=== PATIENT | male | born 1995 | race Caucasian/White ===

== ENCOUNTER 2024-06-13 01:04 | Emergency (ER) | payer MEDICAID, SELFPAY ==
[2024-06-13 01:08] VITALS: BP 152/81; PULSE 85; RESP 20; TEMP 36.8; O2SAT 99; BMI 43.0
--- NOTE | 2024-06-13 01:17 | ED.DENTAL ---
HPI - Dental/Oral General Chief complaint: Dental/Oral/Mouth Injury/Pain Stated complaint: tooth pain Time Seen by Provider: 06/13/24 01:16 History of Present Illness HPI Narrative: Is a 29-year-old gentleman who comes in today with dental pain. The pain is in the right premolar on the top. He has had no fevers no chills no night sweats. He did have a dental appointment which was canceled due to the weather. Patient recently completed course of amoxicillin which seemed help 2 weeks ago. He is interested in seeing a dentist in the near future would like to repeat the amoxicillin get something for pain. Hitting Tylenol and Motrin but the pain is too severe. Again no other HEENT symptoms and no fever. Related Data Home Medications ?Medication ?Instructions ?Recorded ?Confirmed No Known Home Medications 06/13/24 06/13/24 Allergies Allergy/AdvReac Type Severity Reaction Status Date / Time cyclobenzaprine (From Allergy Mild Agitation Verified 06/13/24 01:10 Flexeril) Review of Systems Status of ROS: Reports: 10 or more systems reviewed and unremarkable except as noted in History and below [facility] Medical History (Updated 06/13/24 @ 01:20 by Nico Tovar MD) Migraine without status migrainosus, not intractable ?G43.909 - Migraine, unspecified, not intractable, without status migrainosus (ICD-10) Methamphetamine abuse ?F15.10 - Other stimulant abuse, uncomplicated (ICD-10) Type 2 diabetes mellitus, without long-term current use of insulin ?E11.9 - Type 2 diabetes mellitus without complications (ICD-10) Morbid obesity ?E66.01 - Morbid (severe) obesity due to excess calories (ICD-10) Cystic acne ?L70.0 - Acne vulgaris (ICD-10) Surgical History (Updated 06/13/24 @ 01:19 by Ned Marquez RN) No significant past surgical history Social History Smoking Status: Current every day smoker What tobacco products do you use: cigarettes Second hand tobacco smoke exposure: Yes How often do you have a drink containing alcohol: never AUDIT-C Alcohol total score: 0 Non-prescribed substance use: marijuana (any form) Exam Narrative: Exam Narrative: EXAM GENERAL: Patient appears comfortable and well. EYES: No scleral icterus. ENT: Tympanic membranes and oropharynx normal. THYROID: no thyroid nodules or thyromegaly. LYMPH: No supraclavicular or cervical lymphadenopathy. SKIN: Visible skin seen during exam normal or with benign process only. EXT: No dependent lower extremity pedal edema. HEART: Regular rate and rhythm with no murmurs, rubs, or gallops. LUNGS: Clear to auscultation bilaterally with no crackles or wheezes. ABD: Soft, non tender, non distended. PSYCH: Good eye contact, speech is not pressured. Const: Vital Signs, click to edit/add: Vital Signs - 24 hr 06/13/24 01:08 Temperature 98.2 F Pulse Rate [Right Pulse Oximeter] 85 Respiratory Rate 20 Blood Pressure [Ri ght Upper Arm] 152/81 H Pulse Oximetry 99 Oxygen Delivery Me thod Room Air Course Vital Signs Vital signs: Initial Vital Signs Temperature 98.2 F 06/13/24 01:08 Temperature Source Temporal Artery Scan 06/13/24 01:08 Pulse Rate 85 06/13/24 01:08 Respiratory Rate 20 06/13/24 01:08 Blood Pressure 152/81 H 06/13/24 01:08 Blood Pressure Mean 104 06/13/24 01:08 Blood Pressure Position Sitting 06/13/24 01:08 Pulse Oximetry 99 06/13/24 01:08 Oxygen Delivery Method Room Air 06/13/24 01:08 Vital Signs Temperature 98.2 F 06/13/24 01:08 Pulse Rate 85 06/13/24 01:08 Respiratory Rate 20 06/13/24 01:08 Blood Pressure 152/81 H 06/13/24 01:08 Pulse Oximetry 99 06/13/24 01:08 Oxygen Delivery Method Room Air 06/13/24 01:08 Temperature 98.2 F 06/13/24 01:08 Pulse Rate 85 06/13/24 01:08 Respiratory Rate 20 06/13/24 01:08 Blood Pressure 152/81 H 06/13/24 01:08 Pulse Oximetry 99 06/13/24 01:08 Oxygen Delivery Method Room Air 06/13/24 01:08 MDM - Dental/Oral MDM Narrative Medical decision making narrative: Patient is a 29-year-old gentleman presents with dental pain. I did explain that we do not generally give narcotics for dental pain. I did prescribe amoxicillin for the next 7 days recommend dental follow-up Tylenol Motrin and I did give him 30 mg of IM Toradol. All questions were answered new keep his dental f Discharge Plan Discharge Clinical Impression: Dental caries Patient Disposition: Home, Self-Care Condition: Stable Instructions: Toothache (ED) Additional Instructions: amoxicillin as directed Tylenol Motrin ice follow-up with your dental Activity Level: No Restrictions Discharge Diet: Regular Prescriptions: No Action No Known Home Medications Stand Alone Forms: [employer] Info Instructions
[2024-06-13 01:24] VITALS: TEMP 36.8
[2024-06-13] MEDS: KETOROLAC 30 MG/ML inj IM (01:24)
--- OUTSIDE RECORDS SUMMARY | 2024-06-13 01:27 | XMS_ITS | Encounter Summary ---
Author Organization [facility] er Address [address] [place] [address] Care Team Providers Care Snipper Name Role Phone Renan Sagastume APRN, CNP Primary Care Provider Encounter Details Date Type Department Care Team (Late st Contact Info) Description 06/11/2020 Telephone [facility] [address] [place] [address] Addie Moser PA-C Social History Tobacco Use Types Packs/Day Years Used Date Smoking Tobacco: Every Day Cigarettes 0.3 8 Smokeless Tobacco: Never Alcohol Use Standard Drinks/Week Comments Not Currently 0 (1 standard drink = 0.6 oz pur e alcohol) Humiliation, Afraid, Rape, and Kick questionnair e Answer Date Recorded Within the last year, have y ou been afraid of your partner or ex-partner? No 10/07/2019 Within the last year, have y ou been humiliated or emotionally abused in other ways by your partner or ex-partner? No Within the last year, have y ou been kicked, hit, slapped, or otherwise physically hurt by your partner or ex-partner? No 10/07/2019 Within the last year, have y ou been raped or forced to have any kind of sexual activity by your partner or ex-partner? No 10/07/2019 Social Connection and Isolation Panel [NHANES] A nswer Date Recorded In a typical week, how many times do you talk on the phone with family, friends, or neighbors? Never 10/07/19 20 How often do you get togethe r with friends or relatives? Never 10/07/2019 How often do you attend chur ch or bahai services? Never 10/07/2019 Do you belong to any clubs o r organizations such as scientologist groups, unions, fraternal or athletic groups, or school groups? No 10/07/2019 How often do you attend meet ings of the clubs or organizations you belong to? Never 10/07/2019 Are you , , di vorced, , never , or living with a partner? Living with partner 10/07/2019 AUDIT-C Answer Date Recorded Frequency of Alcohol Consumption Never 04/21/2018 Average Number of Drinks Not on file 019 Frequency of Binge Drinking Not on file 04/09 Overall Financial Resource Strain (CARDIA) Answe r Date Recorded Difficulty of Paying Living Expenses Not hard at all 06/25/2018 PHQ-2 Answer Date Recorded PHQ-2 Score 0 08/07/2018 [facility] - Occupational Stress Questionnaire Answer Date Recorded Feeling of Stress Only a little 06/25/2018 Exercise Vital Sign Answer Date Recorde d Days of Exercise per Week 0 days 2018 Minutes of Exercise per Session Not on file 06/25/2018 Hunger Vital Sign Answer Date Recorded Worried About Running Out of Food in the Last Ye ar Never true 06/25/2018 Ran Out of Food in the Last Year Never true 06/25/2018 PRAPARE - Transportation Answer Date Re corded Lack of Transportation (Medical) Yes 06/25/2018 Lack of Transportation (Non-Medical) Yes 06/25/2018 Education Answer Date Recorded What is the highest level of school you have completed or the highest degree you have received? 10th grade 06/25/2018 Sex and Gender Information Value Date Recorded Sex Assigned at Male 06/25/2018 1:40 PM CDT Legal Sex Male 5:09 PM [employer] Gender Identity Male 06/25/2018 1:40 PM CDT Sexual Orientation Straight 06/25/2018 1: 40 PM CDT documented as of this encounter Plan of Treatment Not on file documented as of this encounter Visit Diagnoses Not on filedocumented in this encounter Additional Health Concerns Infection Onset Date Last Indicated Resolved Time COVID-19 Rule Out 08/06/2020 08/06/2020 08/07/2020 12:53 AM CDT MSSA 05/01/2024 05/01/2024 documented as of this encounter Care Teams Snipper Relationship Specialty Start Date End Date Renan Sagastume, ANDREW, PLASTERER TENDER [address] [place] [phone] PCP - General Family Medicine 08/03/20 documented as of this encounter
--- OUTSIDE RECORDS SUMMARY | 2024-06-13 01:28 | XMS_ITS | Encounter Summary ---
Author Organization [facility] er Address [address] [place] [address] Care Team Providers Care Brownell Operator Name Role Phone Renan Sagastume APRN, CNP Primary Care Provider Reason for Referral * Consultation (Routine) - Authorized Specialty Diagnoses / Procedures Referred By Contchari t Referred To Contact Ophthalmology Diagnoses Type 2 diabetes mellitus without complication, without long-term current use of insulin ([facility]) Renan Sagastume APRN, CNP [address] [place] [phone] Phone: tel: fax: Ophthalmology [address] [place] [address] Phone: tel: fax: Referral ID Status Reason Start Date Expiration Date Visits Requested Visits Authorized [id number] Authorized Specialty Services Required 05/13/2024 05/13/2025 1 1 Scheduling Instructions Please call the Ophthalmology Recreation Therapy Aides Teacher desk at [phone] to schedule an appointment. CLAMPER Reason for Visit * Reason Comments Diabetes Encounter Details Date Type Department Care Team (Late st Contact Info) Description 05/13/2024 3:20 PM DOOR CLAMPER Office Visit Family Medicine [address] [place] [phone] Renan Sagastume APRN, CNP [address] [place] [phone] Type 2 diabetes mellitus without complication, without long-term current use of insulin (HCC) (Primary Dx); Other migraine without status migrainosus, not intractable; Attention disturbance Social History Tobacco Use Types Packs/Day Years Used Date Smoking Tobacco: Every Day Cigarettes 0.3 8 Smokeless Tobacco: Never Alcohol Use Standard Drinks/Week Comments Not Currently 0 (1 standard drink = 0.6 oz pur e alcohol) B1300 Health Literacy Answer Date Recor ded How often do you need to hav e someone help you when you read instructions, pamphlets, or other written material from your doctor or pharmacy? Never 05/13/2024 [facility] Utilities Answer Date Recorded In the past 12 months has e [email or web address], gas, oil, or water [place] threatened to shut off services in your home? No 05/13/2024 Humiliation, Afraid, Rape, and Kick questionnair e [...] or ex-partner? No 10/07/2019 Social Connection and Isolat ion Panel [NHANES] Answer Date Recorded In a typical week, how many times do you talk on the phone with family, friends, or neighbors? More than three times a week 05/13/2024 How often do you get togethe r with friends or relatives? More than three times a week 05/13/2024 How often do you attend chur ch or gnosticism services? 1 to 4 times per year 05/13/2024 Do you belong to any clubs o r organizations such as mosque groups, unions, fraternal or athletic groups, or school groups? No 05/13/2024 How often do you attend meet ings of the clubs or organizations you belong to? Never 05/13/2024 Are you , , di vorced, , never , or living with a partner? Never 05/13/2024 AUDIT-C Answer Date Recorded Q1: How often do you have a drink containing alc ohol? Monthly or less 05/13/2024 Q2: How many drinks containi ng alcohol do you have on a typical day when you are drinking? 5 or 6 05/13/2024 Q3: How often do you have si x or more drinks on one occasion? Less than monthly 05/13/2024 Overall Financial Resource Strain (CARDIA) Answe r Date Recorded How hard is it for you to pa y for the very basics like food, housing, medical care, and heating? Hard 05/13/2024 PHQ-2 Answer Date Recorded PHQ-9 Total Score 8 05/13/2024 [facility] [place] of Occupat ional Health - Occupational Stress Questionnaire Answer Date Recorded Do you feel stress - tense, restless, nervous, or anxious, or unable to sleep at night because your mind is troubled all the time - these days? Very much 05/13/2024 Exercise Vital Sign Answer Date Recorde d On average, how many days pe r week do you engage in moderate to strenuous exercise (like a brisk walk)? 3 days 05/13/2024 On average, how many minutes do you engage in exercise at this level? 80 min 05/13/2024 Hunger Vital Sign Answer Date Recorded Within the past 12 months, y ou worried that your food would run out before you got the money to buy more. Often true 05/13/19 25 Within the past 12 months, t he food you bought just didn't last and you didn't have money to get more. Often true 05/13/2024 PRAPARE - Transportation Answer Date Re corded In the past 12 months, has l ack of transportation kept you from medical appointments or from getting medications? No 07/2024 In the past 12 months, has l ack of transportation kept you from meetings, work, or from getting things needed for daily living? Yes 05/13/2024 Housing Stability Vital Sign Answer Jason e Recorded In the last 12 months, was t here a time when you were not able to pay the mortgage or rent on time? Yes 05/13/2024 In the past 12 months, how m any times have you moved where you were living? 5 05/13/2024 At any time in the past 12 m [facility], were you homeless or living in a retirement (including now)? Yes 05/13/2024 Education Answer Date Recorded What is the highest level of school you have completed or the highest degree you have received? 10th grade 06/25/2018 Sex and Gender Information Value Date Recorded Sex Assigned at Male 06/25/2018 1:40 PM CDT Legal Sex Male 5:09 PM DOOR CLAMPER Gender Identity Male 06/25/2018 1:40 PM CDT Sexual Orientation Straight 06/25/2018 1: 40 PM CDT documented as of this encounter Last Filed Vital Signs Vital Sign Reading Time Taken Comments Blood Pressure 125/86 05/13/2024 3:07 PM DOOR CLAMPER Pulse 79 05/13/2024 3:07 PM DOOR CLAMPER Temperature 36.2 C (97.2 F) 05/13/2024 3:07 PM DOOR CLAMPER Respiratory Rate 16 05/13/2024 3:07 PM DOOR CLAMPER Oxygen Saturation 99% 05/13/2024 3:07 PM DOOR CLAMPER Inhaled Oxygen Concentration - - Weight 133 kg (292 lb 14.1 oz) 05/13/2024 3:07 P M DOOR CLAMPER Height 178 cm (5' 10.08) 05/13/2024 3:07 PM DOOR CLAMPER Body Mass Index 41.93 05/13/2024 3:07 PM DOOR CLAMPER documented in this encounter Patient Instructions * Patient Instructions* Renan Sagastume APRN, CNP - 05/13/2024 3:20 PM DOOR CLAMPER ADHD Testing Resources [employer]: [phone] - [email or web address] [facility] [place]: [phone] [employer]: [phone] - [email or web address] [email or web address] [facility]: [phone] - [email or web address] CLAMPER documented in this encounter Progress Notes * Renan Sagastume APRN, CNP - 05/13/2024 3:20 PM CST Subjective Patient ID: Kam Rosas is a 29 y.o. male. Chief Complaint Patient presents with Diabetes 29-year-old male presents today with his son. The patient is here today primarily for concerns of diabetes. This is my first visit with him since August 06, 2020. Patient has history of type 2 diabetes mellitus after hemoglobin A1c on August 04, 2020 was 7.1%. Patient has had subsequent testing over the last couple years, with his last hemoglobin A1c June 28, 2022 of 6.0%. He is not currently on any medication for treatment, he had previously been on metformin 500 mg twice a day but discontinued this secondary to issues related to swelling of the joints inthe wrist, thumbs, and feet. He would be open to trying injectable treatment if necessary. No family history of thyroid cancer, he has never had any difficulty with gallbladder or pancreas. He is requesting a prescription for a new glucometer as well as strips and lancets. History of migraine headaches, he has a prescription for Imitrex nasal spray and would like to get a refill of this today. Patient has used this in the past with satisfactory benefit. He may get 1 migraine type headache every other month or so. Interested in testing for ADHD. The patient identifies it is difficult to take care of things at home. He understands that there are things that need to be done but he is not accomplishing or doing them even though he sees the need. He has never been tested for ADHD in the past, but acknowledges difficulty with symptoms of ADHD going back several years. Currently sees a therapist through [facility] and is in outpatient treatment for history of amphetamine use. No family history of ADHD that he is aware of. The following portions of the patient's chart were reviewed in this encounter and updated as appropriate: Tobacco Allergies Meds Problems Med Hx Surg Hx Fam Hx Review of Systems All other systems reviewed and are negative. Vitals: 05/13/24 1507 BP: 125/86 Pulse: 79 Resp: 16 Temp: 36.2 ??C (97.2 ??F) SpO2: 99% Objective Physical Exam Vitals and nursing note reviewed. Constitutional: General: He is not in acute distress. Appearance: Normal appearance. He is obese. He is not ill-appearing, toxic- appearing or diaphoretic. Skin: General: Skin is warm and dry. Coloration: Skin is not jaundiced or pale. Findings: No bruising, erythema, lesion or rash. Neurological: General: No focal deficit present. Mental Status: He is alert and oriented to person, place, and time. Mental status is at baseline. Cranial Nerves: No cranial nerve deficit. Sensory: No sensory deficit. Motor: No weakness. Coordination: Coordination normal. Gait: Gait normal. Comments: There is no decreased sensation to monofilament testing bilateral feet. Psychiatric: Mood and Affect: Mood normal. Behavior: Behavior normal. Thought Content: Thought content normal. Judgment: Judgment normal. Assessment/Plan Diagnoses and all orders for this visit: Type 2 diabetes mellitus without complication, without long-term current use of insulin (HCC) - Hemoglobin A1c; Future - Lipid panel (fasting); Future - Microalbumin/Creatinine Ratio; Future - Comprehensive metabolic panel; Future - glucose blood (Accu-Chek Guide) test strip; Use as instructed 2 times daily - Home blood glucose meter - Lancets misc; Use to test blood glucose twice a day. - Ambulatory referral to Ophthalmology Other migraine without status migrainosus, not intractable - SUMAtriptan (IMITREX) 20 MG/ACT nasal spray; 10 mg as a single dose in 1 nostril. If symptoms persist or return, may repeat dose after >=1 hour. Maximum dose: 30 mg per 24 hours. Attention disturbance Other orders - Tdap vaccine greater than or equal to 7yo IM Tdap today. Imitrex nasal spray was reordered. New order for strips, lancets, and glucometer was provided. Referral to ophthalmology placed. ADHD testing resources were provided for him to contact and set up at his convenience. Laboratory testing today. We will let him know results once they have returned. This may require anoffice visit or we can accomplish this virtually. Patient amenable to plan and has no further question at this time. CLAMPER documented in this encounter Plan of Treatment Scheduled Referrals Name Type Priority Associated Diagnoses Order Schedule Ambulatory referral to Ophthalmology Outpatient Referral Routine Type 2 diabetes mellitus without complication, without long-term current use of insulin (HCC) Ordered: 05/13/2024 documented as of this encounter Results * Microalbumin/Creatinine Ratio (05/13/2024 4:10 PM DOOR CLAMPER) Microalbumin,mg/ day 14.6 0.0 - 16.6 mg/L 05/13/2024 9:27 PM [facility] Creatinine, Urine 231 mg/dL 05/13/2024 8:42 PM [facility] Comment: No established reference range. Microalb/Creat Ratio 6 0 - 16 mg/g 05/13/2024 9:27 PM [facility] Urine 05/13/2024 4:10 PM DOOR CLAMPER 05/13/2024 7:48 PM DOOR CLAMPER us Renan Sagastume APRN, CNP LAB URINE ORDERABLES F inal Result [facility] [address] [place] [phone] * Comprehensive metabolic panel (05/13/2024 4:03 PM [facility]) Total Protein 7.3 6.3 - 8.2 g/dL 05/13/2024 8:16 PM [facility] Albumin, Serum 4.6 3.5 - 5.0 g/dL 05/13/2024 8:16 PM [facility] Total Bilirubin <0.7 0.1 - 1.0 mg/dL 05/13/2024 8:16 PM [facility] AST 23 8 - 48 U/L 05/13/2024 8:16 PM [facility] Alkaline Phosphatase 51 38 - 128 U/L 05/13/2024 8:16 PM [facility] ALT (SGPT) 35 0 - 49 U/L 05/13/2024 8:16 PM [facility] Sodium 140 135 - 145 mEq/L 05/13/2024 8:16 PM [facility] Potassium 3.9 3.5 - 5.1 mEq/L 05/13/2024 8:16 PM [facility] Chloride 103 98 - 107 mEq/L 05/13/2024 8:16 PM [facility] CO2 29 22 - 31 mmol/L 05/13/2024 8:16 PM [facility] BUN 13 5 - 25 mg/dL 05/13/2024 8:16 PM [facility] Creatinine 0.76 0.60 - 1.40 mg/dL 05/13/2024 8:16 PM [facility] Glucose 97 70 - 100 mg/dL 05/13/2024 8:16 PM [facility] Calcium, Total,S 9.5 8.4 - 10.2 mg/dL 05/13/2024 8:16 PM [facility] Anion Gap 8 4 - 13 05/13/2024 8:16 PM [facility] Comment: The anion gap is calculated with the following formula: AGAP = Na ? (Cl + CO2). Fasting? No 05/13/2024 4:03 PM [facility] Blood (Blood, Venous) 05/13/2024 4:03 PM DOOR CLAMPER 05/13/2024 7:48 PM DOOR CLAMPER Renan Sagastume APRN, CNP LAB BLOOD ORDERABLES F inal Result [facility] [address] [place] [address] * (ABNORMAL) Lipid panel (fasting) (05/13/2024 4:03 PM [facility]) Cholesterol 152 0 - 199 mg/dL 05/13/2024 8:16 PM [facility] Comment: Recommended by National Cholesterol Education Program (ATP III) -------- Cholesterol Ranges -------- <200 Desirable 200-239 Borderline high >=240 High Triglycerides 129 0 - 149 mg/dL 05/13/2024 8:16 PM [facility] Comment: -------- TRIG Ranges -------- <150 Normal 150-199 Borderline high 200-499 High >=500 Very high HDL 34(L) 40 - 250 mg/dL 05/13/2024 8:16 PM [facility] Comment: -------- HDL Ranges -------- <40 Low 40-59 Normal >=60 Optimal LDL Calculated 92 0 - 99 mg/dL 05/13/2024 8:16 PM DOOR CLAMPER [facility] Comment: -------- LDL Ranges -------- <100 Optimal 100-129 Near optimal/above optimal 130-159 Borderline high 160-189 High >=190 Very high Blood (Blood, Venous) 05/13/2024 4:03 PM DOOR CLAMPER 05/13/2024 7:48 PM DOOR CLAMPER us Renan Sagastume EDUCATIONAL PSYCHOLOGIST, ALUMNI RELATIONS COORDINATOR LAB BLOOD ORDERABLES F inal Result Performing Organization Address [facility] Co de Phone Number [facility] [address] [place] [phone] * Hemoglobin A1c (05/13/2024 4:03 PM DOOR CLAMPER) Hemoglobin A1C 5.5 4.0 - 5.6 % A1C 05/14/2024 4:44 AM DOOR CLAMPER [facility] Comment: Reference Range 4.0-5.6% is for non- adults >=18 yrs <5.6% Non-Diabetic 5.7-6.4% Increased risk of Diabetes >=6.5% Indicative of Diabetes <7.0% ADA goal for glycemic control Methodology may not detect all hemoglobin variants which can affect A1c results. Method certified by National Glycohemoglobin Standardization Program. Blood (Blood, Venous) 05/13/2024 4:03 PM DOOR CLAMPER 05/13/2024 7:48 PM DOOR CLAMPER us Renan Sagastume EDUCATIONAL PSYCHOLOGIST, ALUMNI RELATIONS COORDINATOR LAB BLOOD ORDERABLES F inal Result Performing Organization Address [facility] Co de Phone Number [facility] [address] [place] [address] documented in this encounter Visit Diagnoses Diagnosis Type 2 diabetes mellitus without complication, without long-term current use of insulin (HCC)- Primary Other migraine without status migrainosus, not intractable Attention disturbance documented in this encounter Additional Health Concerns Infection Onset Date Last Indicated Resolved Time MSSA 05/01/2024 05/01/2024 documented as of this encounter Care Teams Brownell Operator Relationship Specialty Start Date End Date Renan Sagastume, ADNREW, ALUMNI RELATIONS COORDINATOR [address] [place] [address] PCP - General Family Medicine 08/03/20 documented as of this encounter
--- OUTSIDE RECORDS SUMMARY | 2024-06-13 01:28 | XMS_ITS | Encounter Summary ---
Author Organization [facility] er Address [address] [place] [address] Care Team Providers Care Telegraph Equipment Maintainer Name Role Phone Renan Sagastume APRN, CNP Primary Care Provider Encounter Details Date Type Department Care Team (Late st Contact Info) Description 09/15/[address] [place] [address] Prachi Ortiz, PA-C Social History Tobacco Use Types Packs/Day Years Used Date Smoking Tobacco: Every Day Cigarettes 0.3 8 Smokeless Tobacco: Never Alcohol Use Standard Drinks/Week Comments Not Currently 0 (1 standard drink = 0.6 oz pur e alcohol) AUDIT-C Answer Date Recorded Frequency of Alcohol Consumption Never 04/21/2018 Average Number of Drinks Not on file 019 Frequency of Binge Drinking Not on file 04/09 Overall Financial Resource Strain (CARDIA) Answe r Date Recorded Difficulty of Paying Living Expenses Not hard at all 06/25/2018 PHQ-2 Answer Date Recorded PHQ-2 Score 0 08/07/2018 [facility] [place] of Occupat ional Health - Occupational Stress [...] PM CDT Legal Sex Male 5:09 PM ASSISTED LIVING HOME DIRECTOR Gender Identity Male 06/25/2018 1:40 PM CDT Sexual Orientation Straight 06/25/2018 1: 40 PM CDT documented as of this encounter Plan of Treatment Not on file documented as of this encounter Visit Diagnoses Not on filedocumented in this encounter Additional Health Concerns Infection Onset Date Last Indicated Resolved Time COVID-19 Rule Out 03/16/2020 03/16/2020 03/16/2020 11:04 PM ASSISTED LIVING HOME DIRECTOR COVID-19 Rule Out 08/06/2020 08/06/2020 08/07/2020 12:53 AM CDT MSSA 05/01/2024 05/01/2024 documented as of this encounter Care Teams Telegraph Equipment Maintainer Relationship Specialty Start Date End Date Renan Sagastume, SPRINKLER FITTER HELPER, ALLERGIST/MD [address] [place] [phone] PCP - General Family Medicine 08/03/20 documented as of this encounter
--- OUTSIDE RECORDS SUMMARY | 2024-06-13 01:28 | XMS_ITS | Encounter Summary ---
Author Organization [facility] er Address [address] [place] [address] Care Team Providers Care Superintendent Drivers Name Role Phone Renan Sagastume APRN, CNP Primary Care Provider Reason for Visit * Reason Onset Date Comments SUMAtriptan 20MG/ACT solution prior auth 025 Encounter Details Date Type Department Care Team (Late st Contact Info) Description 05/19/2024 Telephone Family Medicine [address] [place] [address] Renan Sagastume APRN SYSTEMS INTEGRATION MANAGER [address] [place] [address] SUMAtriptan 20MG/ACT solution prior auth Social History Tobacco Use Types Packs/Day Years [...] from your doctor or pharmacy? Never 05/13/2024 [facility] Utilities Answer Date Recorded In the past 12 months has e [employer], gas, oil, or water company threatened to shut off services in your [...] week 05/13/2024 How often do you attend [facility] or [employer]ats[employer] services? 1 to 4 times per year 05/13/2024 Do you belong to any clubs o r organizations such as restoration groups, unions, fraternal or athletic groups, or [...] Date Recorded PHQ-9 Total Score 8 05/13/2024 [facility] [place] of Occupat ional Health - Occupational Stress [...] any time in the past 12 m [facility], were you homeless or living in a mcc (including now)? Yes 05/13/2024 Education Answer Date Recorded What is the highest level of school you have completed or the highest degree you have received? 10th grade 06/25/2018 Sex and Gender Information Value Date Recorded Sex Assigned at Male 06/25/2018 1:40 PM CDT Legal Sex Male 5:09 PM PRIVATE BRANCH EXCHANGE OPERATOR Gender Identity Male 06/25/2018 1:40 PM CDT Sexual Orientation Straight 06/25/2018 1: 40 PM CDT documented as of this encounter Miscellaneous Notes * Telephone Encounter - Renan Sagastume, ANDREW, STEPHON - 05/19/2024 5:37 PM PRIVATE BRANCH EXCHANGE OPERATOR Please advise patient of denial for medication. Insurance is requiring a trial of something different. He could try Zomig (zolmitriptan) which comes in pill form or nasal spray. Has he tried either previously? And does he have a preference on trying nasal spray vs pill? ATE BRANCH EXCHANGE OPERATOR * Telephone Encounter - Pinky Dumont MA - 05/19/2024 4:09 PM CST Images from the original note were not included. This is denied. Appeals information: [employer] Attn: Appeals/Promotions Executive Producer [address] [place] [address] ATE BRANCH EXCHANGE OPERATOR * Telephone Encounter - Alyse Reece LPN - 05/19/2024 9:44 AM CST SUMAtriptan 20MG/ACT solution BIN:[id number] PCN: PARUL GROUP: PMAP PLAN: [employer] PHONE: ID:[id number] Dispense in Multiples of 6.000 only per cmm PA completed per CMM, sent to ins. plan. Bond: [id number] ATE BRANCH EXCHANGE OPERATOR documented in this encounter Plan of Treatment Not on file documented as of this encounter Visit Diagnoses Not on filedocumented in this encounter Additional Health Concerns Infection Onset Date Last Indicated Resolved Time MSSA 05/01/2024 05/01/2024 documented as of this encounter Care Teams Superintendent Drivers Relationship Specialty Start Date End Date Renan Sagastume APRN, STEPHON [address] [place] [phone] PCP - General Family Medicine 08/03/20 documented as of this encounter
--- OUTSIDE RECORDS SUMMARY | 2024-06-13 01:28 | XMS_ITS | Encounter Summary ---
Author Organization [facility] er Address [address] [place] [address] Care Team Providers Care Final Installer Inspector Name Role Phone Renan Sagastume APRN, STEPHON Primary Care Provider Encounter Details Date Type Department Care Team (Late st Contact Info) Description 05/13/2024 4:00 PM SKILLED LABOR Lab [facility] Lab [address] [place] [id number] Type 2 diabetes mellitus without complication, without long-term current use of insulin (HCC) Social History Tobacco Use Types Packs/Day Years [...] from your doctor or pharmacy? Never 05/13/2024 [facility] Utilities Answer Date Recorded In the past 12 months has [facility] [employer], oil, or water bCODE threatened to shut off services in your [...] 05/13/2024 How often do you attend chur or sabianist services? 1 to 4 times per year 05/13/2024 Do you belong to any clubs o r organizations such as druze groups, unions, fraternal or athletic groups, or [...] Date Recorded PHQ-9 Total Score 8 05/13/2024 [facility] Occup[facility] ional Health - Occupational Stress [...] any time in the past 12 [facility], were you homeless or living in a custodial (including now)? Yes 05/13/2024 Education Answer Date Recorded What is the highest level of school you have completed or the highest degree you have received? 10th grade 06/25/2018 Sex and Gender Information Value Date Recorded Sex Assigned at Male 06/25/2018 1:40 PM CDT Legal Sex Male 5:09 PM SKILLED LABOR Gender Identity Male 06/25/2018 1:40 PM CDT Sexual Orientation Straight 06/25/2018 1: 40 PM CDT documented as of this encounter Miscellaneous Notes * Result Encounter Note - Devika Lawrence MA - 05/13/2024 4:00 PM SKILLED LABOR Patient notified of test results per Renan Sagastume request. Patient requested a script for AccuChek Glucose Meter be sent to pharmacy. Patient received test strips and lancets, but no meter. Script pended. LED LABOR documented in this encounter Plan of Treatment Not on file documented as of this encounter Procedures Procedure Name Priority Date/Time Associated Diagnosis Comments MICROALBUMIN/CREATININ E RATIO Routine 05/13/2024 4:10 PM SKILLED LABOR Type 2 diabetes mellitus without complication, without long-term current use of insulin (HCC) ESTIMATED GLOMERULAR FILTRATION RATE (EGFR) Routine 05/13/2024 4:03 PM SKILLED LABOR Type 2 diabetes mellitus without complication, without long-term current use of insulin ([facility]) HEMOGLOBIN A1C Routine 05/13/2024 4:03 PM SKILLED LABOR Type 2 diabetes mellitus without complication, without long-term current use of insulin ([facility]) LIPID PANEL Routine 05/13/2024 4:03 PM SKILLED LABOR Type 2 diabetes mellitus without complication, without long-term current use of insulin ([facility]) COMPREHENSIVE METABOLIC PANEL Routine 05/13/2024 4:03 PM SKILLED LABOR Type 2 diabetes mellitus without complication, without long-term current use of insulin ([facility]) documented in this encounter Results * Microalbumin/Creatinine Ratio (05/13/2024 4:10 PM SKILLED LABOR) Pathologist [facility] Microalbumin,mg/ day 14.6 0.0 - 16.6 mg/L 05/13/2024 9:27 PM SKILLED LABOR [facility] Creatinine, Urine 231 mg/dL 05/13/2024 8:42 PM [facility] Comment: No established reference range. Microalb/Creat Ratio 6 0 - 16 mg/g 05/13/2024 9:27 PM SKILLED LABOR [facility] Urine 05/13/2024 4:10 PM SKILLED LABOR 05/13/2024 7:48 PM SKILLED LABOR us Renan Sagastume APRN, DIETITIAN ASSISTANT LAB URINE ORDERABLES F inal Result [facility] [address] [place] [address] * Estimated Glomerular Filtration Rate (eGFR) (05/13/2024 4:03 PM SKILLED LABOR) Estimated Glomerular Filtration Rate (eGFR) >60 05/13/2024 8:16 PM [facility] Comment: GFR calculated from serum creatinine value Chronic Kidney Disease less than 60 mL/min/1.73 m2 Kidney Failure less than 15 mL/min/1.73 m2 Note: effective 04/05/2022: 2020 CKD-EPI Equation used 05/13/2024 4:03 PM SKILLED LABOR 05/13/2024 4:03 PM SKILLED LABOR Renan Sagastume APRN, CNP LAB BLOOD ORDERABLES F inal Result [facility] [address] [place] [address] * (ABNORMAL) Lipid panel (fasting) (05/13/2024 4:03 PM SKILLED LABOR) Cholesterol 152 0 - 199 mg/dL 05/13/2024 8:16 PM SKILLED LABOR [facility] Comment: Recommended by National Cholesterol Education Program (ATP III) -------- Cholesterol Ranges -------- <200 Desirable 200-239 Borderline high >=240 High Triglycerides 129 0 - 149 mg/dL 05/13/2024 8:16 PM SKILLED LABOR [facility] Comment: -------- TRIG Ranges -------- <150 Normal 150-199 Borderline high 200-499 High >=500 Very high HDL 34(L) 40 - 250 mg/dL 05/13/2024 8:16 PM SKILLED LABOR [facility] Comment: -------- HDL Ranges -------- <40 Low 40-59 Normal >=60 Optimal LDL Calculated 92 0 - 99 mg/dL 05/13/2024 8:16 PM SKILLED LABOR [facility] Comment: -------- LDL Ranges -------- <100 Optimal 100-129 Near optimal/above optimal 130-159 Borderline high 160-189 High >=190 Very high Blood (Blood, Venous) 05/13/2024 4:03 PM SKILLED LABOR 05/13/2024 7:48 PM SKILLED LABOR Renan Sagastume APRN, CNP LAB BLOOD ORDERABLES F inal Result Performing Organization Address [facility] Co de Phone Number [facility] [address] [place] [address] * Hemoglobin A1c (05/13/2024 4:03 PM SKILLED LABOR) [facility] Hemoglobin A1C 5.5 4.0 - 5.6 % A1C 05/14/2024 4:44 AM SKILLED LABOR [facility] Comment: Reference Range 4.0-5.6% is for non- adults >=18 yrs <5.6% Non-Diabetic 5.7-6.4% Increased risk of Diabetes >=6.5% Indicative of Diabetes <7.0% ADA goal for glycemic control Methodology may not detect all hemoglobin variants which can affect A1c results. Method certified by National Glycohemoglobin Standardization Program. Blood (Blood, Venous) 05/13/2024 4:03 PM SKILLED LABOR 05/13/2024 7:48 PM SKILLED LABOR Renan Sagastume APRN, CNP LAB BLOOD ORDERABLES F inal Result Performing Organization Address [facility] Co de Phone Number [facility] [address] [place] [address] * Comprehensive metabolic panel (05/13/2024 4:03 PM SKILLED LABOR) [facility] Total Protein 7.3 6.3 - 8.2 g/dL 05/13/2024 8:16 PM [facility] Albumin, Serum 4.6 3.5 - 5.0 g/dL 05/13/2024 8:16 PM [facility] Total Bilirubin <0.7 0.1 - 1.0 mg/dL 05/13/2024 8:16 PM [facility] AST 23 8 - 48 U/L 05/13/2024 8:16 PM [facility] Alkaline Phosphatase 51 38 - 128 U/L 05/13/2024 8:16 PM [facility] ALT (SGPT) 35 0 - 49 U/L 05/13/2024 8:16 PM [facility] Sodium 140 135 - 145 mEq/L 05/13/2024 8:16 PM [facility] Potassium 3.9 3.5 - 5.1 mEq/L 05/13/2024 8:16 PM [facility] Chloride 103 98 - 107 mEq/L 05/13/2024 8:16 PM [facility] CO2 29 22 - 31 mmol/L 05/13/2024 8:16 PM [facility] BUN 13 5 - 25 mg/dL 05/13/2024 8:16 PM [facility] Creatinine 0.76 0.60 - 1.40 mg/dL 05/13/2024 8:16 PM [facility] Glucose 97 70 - 100 mg/dL 05/13/2024 8:16 PM [facility] Calcium, Total,S 9.5 8.4 - 10.2 mg/dL 05/13/2024 8:16 PM [facility] Anion Gap 8 4 - 13 05/13/2024 8:16 PM [facility] Comment: The anion gap is calculated with the following formula: AGAP = Na ? (Cl + CO2). Fasting? No 05/13/2024 4:03 PM [facility] Blood (Blood, Venous) 05/13/2024 4:03 PM SKILLED LABOR 05/13/2024 7:48 PM SKILLED LABOR us Renan Sagastume APRN DIETITIAN ASSISTANT LAB BLOOD ORDERABLES F inal Result [facility] [address] [place] [address] documented in this encounter Visit Diagnoses Diagnosis Type 2 diabetes mellitus without complication, without long-term current use of insulin (HCC) documented in this encounter Additional Health Concerns Infection Onset Date Last Indicated Resolved Time MSSA 05/01/2024 05/01/2024 documented as of this encounter Care Teams Final Installer Inspector Relationship Specialty Start Date End Date Renan Sagastume APRN, DIETITIAN ASSISTANT [address] [place] [address] PCP - General Family Medicine 08/03/20 documented as of this encounter
--- OUTSIDE RECORDS SUMMARY | 2024-06-13 01:28 | XMS_ITS | Encounter Summary ---
Author Organization [facility] er Address [address] [place] [address] Care Team Providers Care Application Processor Name Role Phone Renan Sagastume APRN, CNP Primary Care Provider Reason for Referral * Consultation (Routine) - Authorized Specialty Diagnoses / Procedures Referred By Contchari t Referred To Contact Family Medicine Diagnoses Elevated blood pressure reading Kamilah Garcias DNP, APRN, CNP [address] [place] [phone] Phone: tel: fax: Family Medicine [address] [place] [address] Phone: tel: fax: Referral ID Status Reason Start Date Expiration Date V isits Requested Visits Authorized [id number] Authorized 05/01/2024 05/02/2025 99 99 TICS SOFTWARE ENGINEER Reason for Visit * Reason Comments Skin Infection Skin infection aroun d his waistline x 1 yr on/off Draining a serosanguinous color Encounter Details Date Type Department Care Team (Late st Contact Info) Description 05/01/2024 3:00 PM ROBOTICS SOFTWARE ENGINEER Office Visit Acute Care [address] [place] [address] Kamilah Garcias DNP, APRN, STEPHON [address] [place] [phone] Abscess (Primary Dx); Elevated blood pressure reading Social History Tobacco Use Types Packs/Day Years [...] often do you attend chur ch or voodoo services? Never 10/07/2019 Do you belong to any clubs o r organizations such as religious groups, unions, fraternal or athletic groups, or school groups? No 10/07/2019 How often do you attend meet ings of the clubs or organizations you belong to? Never 10/07/2019 Are you , , di vorced, , never , or living with a partner? Living with partner 10/07/2019 AUDIT-C Answer Date Recorded Q1: How often do you have a drink containing alc ohol? Never 08/12/2020 Average Number of Drinks Not on file 021 Frequency of Binge Drinking Not on file 09/2020 Overall Financial Resource Strain (CARDIA) Answe r Date Recorded Difficulty of Paying Living Expenses Not hard at all 06/25/2018 PHQ-2 Answer Date Recorded PHQ-9 Total Score 0 05/01/2024 [facility] Occupat ional Health - Occupational Stress [...] PM CDT Legal Sex Male 5:09 PM ROBOTICS SOFTWARE ENGINEER Gender Identity Male 06/25/2018 1:40 PM CDT Sexual Orientation Straight 06/25/2018 1: 40 PM CDT documented as of this encounter Last Filed Vital Signs Vital Sign Reading Time Taken Comments Blood Pressure 158/97 05/01/2024 3:03 PM ROBOTICS SOFTWARE ENGINEER Pulse 89 05/01/2024 3:03 PM ROBOTICS SOFTWARE ENGINEER Temperature 36.2 C (97.2 F) 05/01/2024 3:03 PM ROBOTICS SOFTWARE ENGINEER Respiratory Rate 16 05/01/2024 3:03 PM ROBOTICS SOFTWARE ENGINEER Oxygen Saturation 99% 05/01/2024 3:03 PM ROBOTICS SOFTWARE ENGINEER Inhaled Oxygen Concentration - - Weight 133 kg (293 lb 15.7 oz) 05/01/2024 3:03 P M ROBOTICS SOFTWARE ENGINEER Height - - Body Mass Index 42.47 08/06/2020 11:06 AM CDT documented in this encounter Progress Notes * Kamilah Garcias, DNP, HYDROTREATER OPERATOR, GUNCOTTON PACKER - 05/01/2024 3:00 PM CST Subjective: Patient ID: Kam Rosas is a 29 y.o. male. Chief Complaint Patient presents with Skin Infection Skin infection around his waistline x 1 yr on/off Draining a serosanguinous color HPI Kam Rosas is a 29 y.o. male presenting to [facility] Care Clinic with complaints of persistent wounds to his waistline. Reports he has had intermittent issues over the past 5 years. Now having drainage. Denies h/o MRSA, does have h/o homelessness and remote methamphetamine use, denies any previous IV use. Reports no recent antibiotic use. Treatment to date: triple antibiotic History obtained by: patient Accompanied by: self Patient's problem list, medications, allergies, past medical, surgical, social and family historieswere reviewed and updated as appropriate. Objective Past Medical History Active Ambulatory Problems Diagnosis Date Noted Sebaceous cyst 08/03/2020 Epidermal inclusion cyst 08/25/2020 Surgical wound, non healing, subsequent encounter 08/26/2020 Methamphetamine use disorder, mild, in early remission ([facility]) 06/28/2022 Migraine without status migrainosus, not intractable 06/28/2022 Morbid obesity with BMI of 40.0-44.9, adult ([facility]) 06/28/2022 Type 2 diabetes mellitus, without long-term current use of insulin ([facility]) 06/28/2022 Resolved Ambulatory Problems Diagnosis Date Noted Cellulitis of groin 08/03/2020 Past Medical History: Diagnosis Date Head trauma in child Headache Obesity Social History Social History Socioeconomic History Marital status: Single Spouse name: Not on file Number of children: 1 Years of education: Not on file Highest education level: 10th grade Occupational History Not on file Tobacco Use Smoking status: Every Day Current packs/day: 0.25 Average packs/day: 0.3 packs/day for 8.0 years (2.0 ttl pk-yrs) Types: Cigarettes Smokeless tobacco: Never Vaping Use Vaping status: Some Days Substances: Nicotine, Flavoring Substance and Sexual Activity Alcohol use: Not Currently Drug use: Yes Types: Marijuana, Methamphetamines Comment: Quit in 2019 from meth, still uses marijuana Sexual activity: Yes Partners: Female Other Topics Concern Not on file Social History Narrative Not on file Social Drivers of Health Financial Resource Strain: Low Risk (06/25/2018) Overall Financial Resource Strain (CARDIA) Difficulty of Paying Living Expenses: Not hard at all Food Insecurity: No Food Insecurity (06/25/2018) Hunger Vital Sign Worried About Running Out of Food in the Last Year: Never true Ran Out of Food in the Last Year: Never true Transportation Needs: Unmet Transportation Needs (06/25/2018) PRAPARE - Transportation Lack of Transportation (Medical): Yes Lack of Transportation (Non-Medical): Yes Physical Activity: Unknown (06/25/2018) Exercise Vital Sign Days of Exercise per Week: 0 days Minutes of Exercise per Session: Not on file Stress: No Stress Concern Present (06/25/2018) [facility] - Occupational Stress Questionnaire Feeling of Stress : Only a little Social Connections: Unknown (06/28/2022) Received from [facility] Social Connections Frequency of Communication with Friends and Family: Not on file Intimate Partner Violence: Not At Risk (10/07/2019) Humiliation, Afraid, Rape, and Kick questionnaire Fear of Current or Ex-Partner: No Emotionally Abused: No Physically Abused: No Sexually Abused: No Housing Stability: Not on file Surgical History Past Surgical History: Procedure Laterality Date APPENDECTOMY SKIN LESION EXCISION Left 08/12/2020 Procedure: EXCISION LESION-LEFT medial thigh; Surgeon: Stacey Howard MD; Location: [facility]; Service: General; Laterality: Left; Medications Current Outpatient Medications: ibuprofen (ADVIL) 600 MG tablet, Take 1 tablet (600 mg total) by mouth every 8 (eight) hours if needed (Pain) Take with food., Disp: 30 tablet, Rfl: 0 Diclofenac Sodium (Voltaren) 1 % gel, Apply 1 g topically 4 (four) times a day To affected area (Patient not taking: Reported on 05/01/2024), Disp: 100 g, Rfl: 0 doxycycline (MONODOX) 100 MG capsule, Take 1 capsule (100 mg total) by mouth 2 (two) times a day for 7 days Take with at least 8 ounces (large glass) of water, do not lie down for 30 minutes after, Disp: 14 capsule, Rfl: 0 Gauze Pads & Dressings (Telfa Non-Adherent) 3X6 pads, 1 each 3 (three) times a day for 10 days, Disp: 30 each, Rfl: 0 glucose blood (Accu-Chek Guide) test strip, Use as instructed 2 times daily (Patient not taking: Reported on 05/01/2024), Disp: 75 each, Rfl: 11 metFORMIN (Glucophage) 500 MG tablet, Take 1 tablet (500 mg total) by mouth 2 (two) times a day with meals (Patient not taking: Reported on 05/01/2024), Disp: 60 tablet, Rfl: 3 oxyCODONE (ROXICODONE) 5 MG immediate release tablet, Take 1 tablet (5 mg total) by mouth every 8 (eight) hours if needed for moderate pain or severe pain (Patient not taking: Reported on 05/01/2024),Disp: 8 tablet, Rfl: 0 SUMAtriptan (IMITREX) 20 MG/ACT nasal spray, Administer 20 mg into affected nostril(s) (Patient nottaking: Reported on 05/01/2024), Disp: , Rfl: SUMAtriptan (Imitrex) 50 MG tablet, Take 1 tablet (50 mg total) by mouth 1 (one) time if needed formigraine (headache) for up to 1 dose May repeat one time after 2 hours if needed. (Patient not taking: Reported on 05/01/2024), Disp: 9 tablet, Rfl: 5 Allergies Allergies Allergen Reactions Cyclobenzaprine Other (see comments) Anger Review of Systems Constitutional: Negative for fever. Musculoskeletal: Negative for arthralgias, neck pain and neck stiffness. Skin: Positive for wound. Negative for color change and rash. Neurological: Negative for weakness. Objective: Visit Vitals BP (!) 158/97 (BP Location: Left arm, Patient Position: Sitting, BP Cuff Size: Large adult) Pulse 89 Temp 36.2 ??C (97.2 ??F) (Temporal) Resp 16 Wt 133 kg (293 lb 15.7 oz) SpO2 99% BMI 42.47 kg/m?? Smoking Status Every Day BSA 2.56 m?? Body mass index is 42.47 kg/m??. Physical Exam Vitals and nursing note reviewed. Constitutional: General: He is not in acute distress. Appearance: Normal appearance. He is obese. He is not ill-appearing or toxic-appearing. HENT: Head: Normocephalic and atraumatic. Cardiovascular: Rate and Rhythm: Normal rate and regular rhythm. Pulses: Normal pulses. Heart sounds: Normal heart sounds. Pulmonary: Effort: Pulmonary effort is normal. No respiratory distress. Breath sounds: Normal breath sounds. No stridor. No wheezing, rhonchi or rales. Musculoskeletal: Cervical back: Normal range of motion. No rigidity. Skin: General: Skin is warm and dry. Coloration: Skin is not pale. Findings: No erythema or rash. Comments: Abdominal fold with approximately 1 x 1 cm abscess to both the left and right abdominal fold. The area on the left is draining mild amount of serosanguinous drainage. No overlying erythema or warmth. Neurological: Mental Status: He is alert and oriented to person, place, and time. Mental status is at baseline. Motor: No weakness. Gait: Gait normal. Psychiatric: Mood and Affect: Mood normal. Behavior: Behavior normal. Assessment/Plan Assessment/Orders: Diagnoses and all orders for this visit: Abscess - doxycycline (MONODOX) 100 MG capsule; Take 1 capsule (100 mg total) by mouth 2 (two) times a day for 7 days Take with at least 8 ounces (large glass) of water, do not lie down for 30 minutes after - Wound culture - Durable Medical Equipment Elevated blood pressure reading - AMB Referral for Routine Blood Pressure Check Plan: Presents with abscess to abdominal fold, now with drainage. Reports chronic history and denies any previous h/o MRSA. With shared decision making, wound culture obtained and will start antibiotics asordered. Side effects reviewed. Await culture results. Other home cares reviewed including rest, OTC analgesia as appropriate, and to keep it covered if draining. Strict return precautions advised prior to clinic departure. I have spoken with the Patient, who expressed clear understanding of everything discussed includingtoday's findings, and I provided specific details regarding the plan of care. They were informed ifsigns and/ or symptoms do not improve, that further work up may be warranted. I discussed reasons to return as well as the importance of follow-up. The Patient states understanding and is in agreement with the above plan. All questions were answered. This note was partially constructed using [employer] medical dictation. All attempts have been made to review for accuracy; although, some nonsensical information may persist despite proofreading. Electronically signed by Kamilah Garcias, ELLIOTT, HYDROTREATER OPERATOR, GUNCOTTON PACKER at 05/01/2024 5:10 PM ROBOTICS SOFTWARE ENGINEER documented in this encounter Plan of Treatment Scheduled Referrals Name Type Priority Associated Diagnoses Orde r Schedule AMB Referral for Routine Blood Pressure Check Outpatient Referral Routine Elevated blood pressure reading Ordered: 05/01/2024 documented as of this encounter Procedures Procedure Name Priority Date/Time Associated Diagnosis Comments WOUND CULTURE Routine 05/01/2024 3:30 PM ROBOTICS SOFTWARE ENGINEER Abscess documented in this encounter Results * (ABNORMAL) Wound culture (05/01/2024 3:30 PM ROBOTICS SOFTWARE ENGINEER) Wound Culture Many Coagulase-negativ e Staphylococcus species Few diphtheroids (A) 05/03/2024 9:54 AM ROBOTICS SOFTWARE ENGINEER [facility] Gram Stain Few gram positive cocci, pairs. Few WBC'S. 05/02/2024 2:23 PM ROBOTICS SOFTWARE ENGINEER [facility] Wound Culture Staphylococcus aureus Many Use oxacillin interpretation to predict results for anti-staphylococc al beta-lactam antibiotics (except ceftaroline). (A) 05/04/2024 6:14 AM ROBOTICS SOFTWARE ENGINEER [facility] Wound (Abdomen) 05/01/2024 3 :30 PM ROBOTICS SOFTWARE ENGINEER 05/01/2024 7:30 PM ROBOTICS SOFTWARE ENGINEER Comment:Wound Culture Narrative Organism Antibiotic Method Susceptibility Staphylococcus aureus Clindamycin <=0.5 mcg/mL: Susceptible Staphylococcus aureus Erythromycin >4 mcg/mL: Resistant Staphylococcus aureus Oxacillin <=0.25 mcg/mL: Susceptible Staphylococcus aureus Tetracycline <=4 mcg/mL: Susceptible Staphylococcus aureus Trimeth/Sulfa <=0.5/9.5 mcg/mL: Susceptible us Kamilah Garcias DNP, HYDROTREATER OPERATOR, GUNCOTTON PACKER LAB M ICROBIOLOGY - GENERAL ORDERABLES Final Result [facility] [address] [place] [address] documented in this encounter Visit Diagnoses Diagnosis Abscess- Primary Cellulitis and abscess of unspecified site Elevated blood pressure reading Elevated blood pressure reading without diagnosis of hypertension documented in this encounter Care Teams Application Processor Relationship Specialty Start Date End Date Renan Sagastume, HYDROTREATER OPERATOR, GUNCOTTON PACKER [address] [place] [address] PCP - General Family Medicine 08/03/20 documented as of this encounter
--- OUTSIDE RECORDS SUMMARY | 2024-06-13 01:28 | XMS_ITS | Encounter Summary ---
Author Organization [facility] er Address [address] [place] [address] Care Team Providers Care Dairy Farmworker Name Role Phone Renan Sagastume APRN, SALES SERVICE SUPERVISOR Primary Care Provider Reason for Visit * Reason Onset Date Comments dressing supplies 05/01/2024 Encounter Details Date Type Department Care Team (Late st Contact Info) Description 05/01/2024 Telephone Acute Care [address] [place] [id number] Kamilah Garcias, DNP, SERVICES ENGINEER, SALES SERVICE SUPERVISOR [address] [place] [phone] dressing supplies Social History Tobacco Use Types Packs/Day Years [...] often do you attend chur ch or zoroastrian services? Never 10/07/2019 Do you belong to any clubs o r organizations such as mormon groups, unions, fraternal or athletic groups, or [...] Date Recorded PHQ-9 Total Score 0 05/01/2024 [facility] of Occupat ional Health - Occupational [...] PM CDT Legal Sex Male 5:09 PM PIPE PULLER Gender Identity Male 06/25/2018 1:40 PM CDT Sexual Orientation Straight 06/25/2018 1: 40 PM CDT documented as of this encounter Miscellaneous Notes * Telephone Encounter - Kamilah Garcias DNP, ANDREW, SALES SERVICE SUPERVISOR - 05/01/2024 4:20 PM CST Thank you for the update! Will complete now. PULLER * Telephone Encounter - Teresa Wilkinson RN - 05/01/2024 4:09 PM CST Patient called to report that [place] [facility] does not have the non- stick telfa that was ordered but he was able to find it at the [facility]. They have size 2 x 3 or 4 x 8. The DME order can be faxed to [phone] PULLER documented in this encounter Plan of Treatment Not on file documented as of this encounter Visit Diagnoses Not on filedocumented in this encounter Care Teams Dairy Farmworker Relationship Specialty Start Date End Date Renan Sagastume APRN, SALES SERVICE SUPERVISOR [address] [place] [phone] PCP - General Family Medicine 08/03/20 documented as of this encounter
--- OUTSIDE RECORDS SUMMARY | 2024-06-13 01:28 | XMS_ITS | Encounter Summary ---
Author Organization [facility] er Address [address] [place] [address] Care Team Providers Care Showroom Manager Name Role Phone Renan Sagastume APRN, CNP Primary Care Provider Reason for Visit * Reason Onset Date Comments Med Refill 05/22/2024 Encounter Details Date Type Department Care Team (Late st Contact Info) Description 05/22/2024 Refill [facility] Internal Medicine [address] [place] [address] Renan Sagastume APRN, HR BUSINESS PARTNER CONSULTANT [address] [place] [address] Type 2 diabetes mellitus without complication, without long-term current use of insulin (HCC) (Primary Dx) Social History Tobacco Use Types Packs/Day Years [...] from your doctor or pharmacy? Never 05/13/2024 [facility] Utilities Answer Date Recorded In the past 12 months has e [employer], gas, oil, or water company threatened to [...] How often do you attend chur or scientology services? 1 to 4 times per year 05/13/2024 Do you belong to any clubs o r organizations such as latter-day groups, unions, fraternal or athletic groups, or [...] Date Recorded PHQ-9 Total Score 8 05/13/2024 [facility] of Occupat ional Health - Occupational Stress [...] time in the past 12 m [facility], were you homeless or living in a residential (including now)? Yes 05/13/2024 Education Answer Date Recorded What is the highest level of school you have completed or the highest degree you have received? 10th grade 06/25/2018 Sex and Gender Information Value Date Recorded Sex Assigned at Male 06/25/2018 1:40 PM CDT Legal Sex Male 5:09 PM DOLL DRESSER Gender Identity Male 06/25/2018 1:40 PM CDT Sexual Orientation Straight 06/25/2018 1: 40 PM CDT documented as of this encounter Plan of Treatment Not on file documented as of this encounter Visit Diagnoses Diagnosis Type 2 diabetes mellitus without complication, without long-term current use of insulin (HCC)- Primary documented in this encounter Additional Health Concerns Infection Onset Date Last Indicated Resolved Time MSSA 05/01/2024 05/01/2024 documented as of this encounter Care Teams Showroom Manager Relationship Specialty Start Date End Date Renan Sagastume, ATHLETIC SCOUT, HR BUSINESS PARTNER CONSULTANT [address] [place] [phone] PCP - General Family Medicine 08/03/20 documented as of this encounter
--- OUTSIDE RECORDS SUMMARY | 2024-06-13 01:28 | XMS_ITS | Clinical Summary ---
Author Organization [facility] Address [address] [place] [address] Care Team Providers Care Benefits Coordinator Name Role Phone Felicity Means Primary Care Provider [phone] Allergies Active Allergy Reactions Criticality Noted Date Comments Cyclobenzaprine Other - Describe In Comment Field Unknown 08/05/2022 Anger Medications blood-glucose meterIndications: Type 2 diabetes mellitus without complication, without long-term current use of insulin (HC) Inject subcutaneous. Dispense meter, test strips, lancets covered by pt ins. E11.9 NIDDM type II - Test 3 times/day. Reason: High A1C 1 Each 3 Active ketoconazole 2% topical (NIZORAL) creamIndications: Tinea pedis of both feet Apply topically to affected area(s) two times daily. 60 g 3 Active SUMAtriptan NASAL (Imitrex) 5 mg/actuation nasal sprayIndications: Migraine without status migrainosus, not intractable, unspecified migraine type Inhale 1 [place] (5 mg) into affected nostril(s) 2 times daily if needed for Migraine. Usual dose is 1 spray into SINGLE nostril, may repeat in 2 hours as needed. Maximum dose 40 mg in 24 hours. 6 Each 3 Active naltrexone (REVIA) 50 mg tabletIndications :Methamphetamine use disorder, mild, in early remission (HC) Take 1 Tablet (50 mg) by mouth at bedtime. 90 Tablet 3 3 Active benzocaine-mentho L-zinc chlor (Orajel 3X Toothache-Gum) 20-0.26-0.15 % gelIndications:De ntal abscess Apply to the lining of the mouth three times daily. 1 Each 3 Active oxyCODONE (ROXICODONE) 5 mg immediate release tabletIndications :Acute pericoronitis,Too th pain Take 1 Tablet (5 mg) by mouth every 6 hours if needed for Pain. 4 Tablet 05/28/2024 10:02 AM TEST AND TURN UP TECHNICIAN 5 Active penicillin v potassium (PEN-VEE K) 500 mg tabletIndications :Acute pericoronitis Take 1 Tablet (500 mg) by mouth two times daily before meals for 7 days. 14 Tablet 05/28/2024 10:02 AM TEST AND TURN UP TECHNICIAN 5 06/04/19 25 Active Problems Problem Noted Date Diagnosed Date Type 2 diabetes mellitus, wi thout long-term current use of insulin 06/28/2022 Morbid obesity with BMI of 40.0-44.9, adult 06/08 Methamphetamine use disorder, mild, in early rem ission 06/28/2022 Migraine without status migrainosus, not intract able 06/28/2022 Encounters Date Type Department Care Team Description 05/28/2024 8:06 AM TEST AND TURN UP TECHNICIAN - 05/28/2024 8:52 AM [facility] Emergency [facility] [address] [place] [address] Jones Ramos MD Acute pericoronitis (Primary Dx); Tooth pain Discharge Disposition: Home Self Care 05/28/2024 Travel from Last 3 Months Immunizations Name Administration Dates Next Due DTaP 01/13/2002,04/29/2001,06/19/1997 ,1996 Hepatitis B, Unspecified 12/26/2000,06/19/1997,0 1996 Hib Conjugate, Unspecified 12/26/2000,06/19/1997 ,1996 Inactivated Polio Vaccine 01/13/2002,12/26/2000, 06/19/1997,1996 MMR 01/13/2002,12/26/2000 Tdap 09/06/2010 Social History Tobacco Use Types Packs/Day Years Used Date Smoking Tobacco: Never Smokeless Tobacco: Never Tobacco Cessation:Counseling Given: Yes Alcohol Use Standard Drinks/Week Comments Never 0 (1 standard drink = 0.6 oz pur e alcohol) PHQ-2 Answer Date Recorded PHQ-2 TOTAL SCORE 0 06/28/2022 Social Connections Answer Date Recorded Frequency of Communication with Friends and Fami ly Not on file 06/28/2022 Interpersonal Safety Answer Date Record ed Are you being hit, kicked, p ushed or yelled at (see row info)? No 05/28/2024 Interpersonal Safety Abuse 12 - 18 Not on file 05/28/2024 Interpersonal Safety Ambulatory Vulnerability No t on file 05/28/2024 Sex and Gender Information Value Date Recorded Sex Assigned at Not on file Legal Sex Male 5:27 AM TEST AND TURN UP TECHNICIAN Gender Identity Not on file Sexual Orientation Not on file Obstetrics History Last Filed Vital Signs Vital Sign Reading Time Taken Comments Blood Pressure 125/77 05/28/2024 8:11 AM TEST AND TURN UP TECHNICIAN Pulse 83 05/28/2024 8:11 AM TEST AND TURN UP TECHNICIAN Temperature 36.8 C (98.3 F) 05/28/2024 8:11 AM TEST AND TURN UP TECHNICIAN Respiratory Rate 16 05/28/2024 8:11 AM TEST AND TURN UP TECHNICIAN Oxygen Saturation 99% 05/28/2024 8:11 AM TEST AND TURN UP TECHNICIAN Inhaled Oxygen Concentration - - Weight 133.8 kg (295 lb) 05/28/2024 8:11 AM TEST AND TURN UP TECHNICIAN Height 177.8 cm (5' 10) 05/28/2024 8:11 AM TEST AND TURN UP TECHNICIAN Body Mass Index 42.33 05/28/2024 8:11 AM TEST AND TURN UP TECHNICIAN Plan of Treatment Health Maintenance Due Date Last Done Comments HIV for age 15-65 02/12/2011 Hepatitis C screening for age 18-79 02/12/2014 Pneumococcal series for age 6-49 (1 of 2 - PCV) 2014 Tetanus booster 09/06/2020 09/06/2010 BMI (ht and wt on same day) for age 18+ 06/29/2023 0 06/28/2022 Depression screening for age 12+ 06/29/2023 06/29/19 23 COVID-19 vaccine series ( - 2023- season) Influenza for age 9-49 12/09/2023 Tdap Completed 09/06/2010 Insurance [employer] [facility] Care Teams Benefits Coordinator Relationship Specialty Start Date End Date Felicity Means DO [address] [place] [id number] PCP - General Family Practice 08/09/22
--- OUTSIDE RECORDS SUMMARY | 2024-06-13 01:28 | XMS_ITS | Encounter Summary ---
Author Organization [facility] er Address [address] [place] [address] Care Team Providers Care City Planning Teacher Name Role Phone Renan Sagastume APRN, CNP Primary Care Provider Reason for Referral * Consultation (Routine) - Authorized Specialty Diagnoses / Procedures Referred By Contchari t Referred To Contact Virtual Care Diagnoses Type 2 diabetes mellitus, without long-term current use of insulin ([facility]) Renan Sagastume APRN, CNP [address] [place] [phone] Phone: tel: fax: [facility] [address] [place] [phone] Phone: tel: fax: Referral ID Status Reason Start Date Expiration Date V isits Requested Visits Authorized [id number] Authorized 06/04/2024 06/04/2025 1 1 Scheduling Instructions Patient will be screened for eligibility and enrollment will be offered if patient meets inclusion criteria. Referral will be processed quarterly along with clinical informatics cohort. Patient may not qualify due to insurance cost. ULAR PHONE REPAIRER Encounter Details Date Type Department Care Team (Late st Contact Info) Description 06/04/2024 Orders Only [facility] Family [facility] 4th Floor [address] [place], [place] [address] Renan Sagastume APRN, CNP [address] [place] [phone] Type 2 diabetes mellitus, without long-term current use of insulin (HCC) [...] from your doctor or pharmacy? Never 05/13/2024 [facility] Utilities Answer Date Recorded In the past 12 months has e [employer], gas, oil, or water [employer] threatened to shut off services in your [...] often do you attend chur ch or sikh services? 1 to 4 times per year 05/13/2024 Do you belong to any clubs o r organizations such as jehovah's witness groups, unions, fraternal or athletic groups, or [...] Date Recorded PHQ-9 Total Score 8 05/13/2024 [facility] of Occupat ional [facility] - Occupational Stress Questionnaire Answer Date Recorded [...] any time in the past 12 m onths, were you homeless or living in a penitentiary (including now)? Yes 05/13/2024 Education Answer Date Recorded What is the highest level of school you have completed or the highest degree you have received? 10th grade 06/25/2018 Sex and Gender Information Value Date Recorded Sex Assigned at Male 06/25/2018 1:40 PM CDT Legal Sex Male 5:09 PM CELLULAR PHONE REPAIRER Gender Identity Male 06/25/2018 1:40 PM CDT Sexual Orientation Straight 06/25/2018 1: 40 PM CDT documented as of this encounter Plan of Treatment Scheduled Referrals Name Type Priority Associated Diagnoses Order Schedule Ambulatory Referral for Remote Monitoring Outpatient Referral Routine Type 2 diabetes mellitus, without long-term current use of insulin (HCC) Ordered: 06/04/2024 documented as of this encounter Visit Diagnoses Diagnosis Type 2 diabetes mellitus, without long-term current use of insulin (HCC) documented in this encounter Additional Health Concerns Infection Onset Date Last Indicated Resolved Time MSSA 05/01/2024 05/01/2024 documented as of this encounter Care Teams City Planning Teacher Relationship Specialty Start Date End Date Renan Sagastume, ANDREW, BUMP GRADER OPERATOR [address] [place] [phone] PCP - General Family Medicine 08/03/20 documented as of this encounter
--- OUTSIDE RECORDS SUMMARY | 2024-06-13 01:28 | XMS_ITS | Clinical Summary ---
Author Organization [facility] er Address [address] [place] [address] Care Team Providers Care Quality Analyst Name Role Phone Renan Sagastume APRN, STEPHON Primary Care Provider Allergies Active Allergy Reactions Criticality Noted Date Comments Cyclobenzaprine Other (see comments) 08/05/2022 Anger Metformin 05/13/2024 Swollen joints Medications glucose blood (Accu-Chek Guide) test stripIndications :Type 2 diabetes mellitus without complication, without long-term current use of insulin ([facility]) Use as instructed 2 times daily 100 each 11 5 Active Lancets miscIndications: Type 2 diabetes mellitus without complication, without long-term current use of insulin ([facility]) Use to test blood glucose twice a day. 100 each 3 5 Active SUMAtriptan (IMITREX) 20 MG/ACT nasal sprayIndications :Other migraine without status migrainosus, not intractable 10 mg as a single dose in 1 nostril. If symptoms persist or return, may repeat dose after >=1 hour. Maximum dose: 30 mg per 24 hours. 1 each 3 5 Active Blood Glucose Monitoring Suppl (Accu-Chek Guide) w/Device kitIndications:T ype 2 diabetes mellitus without complication, without long-term current use of insulin ([facility]) Test blood sugar once a day. 1 kit 5 Active Active Problems Problem Noted Date Diagnosed Date Methamphetamine use disorder, mild, in early rem ission 06/28/2022 Migraine without status migrainosus, not intract able 06/28/2022 Morbid obesity with BMI of 40.0-44.9, adult 2 05/2022 Type 2 diabetes mellitus, wi thout long-term current use of insulin 06/28/2022 Surgical wound, non healing, subsequent encounte r 08/26/2020 Epidermal inclusion cyst 08/25/2020 Sebaceous cyst 08/03/2020 Resolved Problems Problem Noted Date Diagnosed Date Resolved Date Cellulitis of groin 08/03/2020 08/26/19 21 Encounters Date Type Department Care Team Description 06/04/2024 Orders Only Family Medicine 4th Floor [address] [place] [id number] Renan Sagastume APRN, STEPHON Type 2 diabetes mellitus, without long-term current use of insulin ([facility]) 05/22/2024 Refill Internal Medicine [address] [place] [address] Renan Sagastume APRN, STEPHON Type 2 diabetes mellitus without complication, without long-term current use of insulin (HCC) (Primary Dx) 05/19/[address] [address] Renan Sagastume APRN, VENDING MACHINE REFILLER SUMAtriptan 20MG/ACT solution prior auth 05/13/2024 4:00 PM [facility] [employer] Lab Lab [address] [place] [phone] Type 2 diabetes mellitus without complication, without long-term current use of insulin (HCC) 05/13/2024 3:20 PM [employer] Office Visit [address] [phone] Renan Sagastume APRN, VENDING MACHINE REFILLER Type 2 diabetes mellitus without complication, without long-term current use of insulin (HCC) (Primary Dx); Other migraine without status migrainosus, not intractable; Attention disturbance 05/01/2024 3:00 PM [employer] Office Visit Acute Care [address] [place] [address] [phone] Kamilah Garcias DNP, NADREW, VENDING MACHINE REFILLER Abscess (Primary Dx); Elevated blood pressure reading 05/01/2024 Telephone Acute Care [address] [place] [phone] Boysen, Kamilah S., DNP, CST, VENDING MACHINE REFILLER dressing supplies 04/10/2024 5:03 PM [employer] - 04/10/2024 5:55 PM [employer] Emergency [facility] [address] [place] [address] Acute bilateral low back pain with left-sided sciatica (Primary Dx); Chronic diarrhea Discharge Disposition: Home or Self Care from Last 3 Months Immunizations Name Administration Dates Next Due DTaP 01/13/2002,04/29/2001,06/19/1997 ,1996 Hep B, Unspecified 12/26/2000,06/19/1997, 997 HiB 12/26/2000,06/19/1997,1996 IPV 01/13/2002,12/26/2000,06/19/1997 ,1996 MMR 01/13/2002,12/26/2000 Tdap 05/13/2024,09/06/2010 Family History Medical History Relation Comments Asthma Maternal Grandmother Asthma Maternal Great-Grandmother Asthma Mother Migraines Mother Asthma Mother's Brother Relation Status Comments Maternal Grandmother Maternal Great-Grandmother Mother Mother's Brother Social History Tobacco Use Types Packs/Day Years Used Date Smoking Tobacco: Every Day Cigarettes 0.3 8 Smokeless Tobacco: Never Tobacco Cessation:Ready to Q uit: Not Asked; Counseling Given: Not Answered Alcohol Use Standard Drinks/Week Comments Not Currently 0 (1 standard drink = 0.6 oz pur e alcohol) B1300 Health Literacy Answer Date Recor ded How often do you need to hav e someone help you when you read instructions, pamphlets, or other written material from your doctor or pharmacy? Never 05/13/2024 [facility] Utilities Answer Date Recorded In the past 12 months has e Enabled Employment, gas, oil, or water [employer] threatened to shut off services in your [...] How often do you attend chur or jew services? 1 to 4 times per year 05/13/2024 Do you belong to any clubs o r organizations such as yarsani groups, unions, fraternal or athletic groups, or [...] Date Recorded PHQ-9 Total Score 8 05/13/2024 [facility] [place] of Occupat ional Health - Occupational Stress [...] any time in the past 12 m [facility], were you homeless or living in a detention (including now)? Yes 05/13/2024 Education Answer Date Recorded What is the highest level of school you have completed or the highest degree you have received? 10th grade 06/25/2018 Sex and Gender Information Value Date Recorded Sex Assigned at Male 06/25/2018 1:40 PM CDT Legal Sex Male 5:09 PM [employer] Gender Identity Male 06/25/2018 1:40 PM CDT Sexual Orientation Straight 06/25/2018 1: 40 PM CDT Last Filed Vital Signs Vital Sign Reading Time Taken Comments Blood Pressure 125/86 05/13/2024 3:07 PM [employer] Pulse 79 05/13/2024 3:07 PM [employer] Temperature 36.2 C (97.2 F) 05/13/2024 3:07 PM [employer] Respiratory Rate 16 05/13/2024 3:07 PM [employer] Oxygen Saturation 99% 05/13/2024 3:07 PM [employer] Inhaled Oxygen Concentration - - Weight 133 kg (292 lb 14.1 oz) 05/13/2024 3:07 P M [employer] Height 178 cm (5' 10.08) 05/13/2024 3:07 PM [employer] Body Mass Index 41.93 05/13/2024 3:07 PM [employer] Plan of Treatment Health Maintenance Due Date Last Done Comments Diabetes: Retinopathy Screening 02/12/2006 Pneumococcal Vaccine: Pediatrics (0 to 5 Years) and At-Risk Patients (6 to 49 Years) (1 of 2 - PCV) 02/12/2015 COVID-19 Vaccine ( season) 2023 Influenza Vaccine (#1) 2023 Diabetes: Hemoglobin A1C 11/10/2024 025, 06/28/2022, 06/28/2022, Additional history exists Diabetes: Foot Exam 05/13/2025 05/13/2024 Diabetes: Urine Protein Screening 05/13/2025 05/13/2024, 06/28/2022 Lipid Panel 05/13/2025 05/13/2024 DTaP,Tdap,and Td Vaccines (7 - Td or Tdap) 05/13/2034 05/13/2024, 09/06/2010, 01/13/2002, Additional history exists HPV Vaccines Aged Out No longer eligi ble based on patient's age to complete this topic Procedures Procedure Name Priority Date/Time Associated Diagnosis Comments MICROALBUMIN/CREATININ E RATIO Routine 05/13/2024 4:10 PM [employer] Type 2 diabetes mellitus without complication, without long-term current use of insulin (HCC) ESTIMATED GLOMERULAR FILTRATION RATE (EGFR) Routine 05/13/2024 4:03 PM [employer] Type 2 diabetes mellitus without complication, without long-term current use of insulin (HCC) LIPID PANEL Routine 05/13/2024 4:03 PM [employer] Type 2 diabetes mellitus without complication, without long-term current use of insulin (HCC) HEMOGLOBIN A1C Routine 05/13/2024 4:03 PM [employer] Type 2 diabetes mellitus without complication, without long-term current use of insulin (HCC) COMPREHENSIVE METABOLIC PANEL Routine 05/13/2024 4:03 PM [employer] Type 2 diabetes mellitus without complication, without long-term current use of insulin (HCC) WOUND CULTURE Routine 05/01/2024 3:30 PM [employer] Abscess POCT PRECISION GLUCOSE Routine 5:46 PM [employer] from Last 3 Months Results * Microalbumin/Creatinine Ratio (05/13/2024 4:10 PM [employer]) Microalbumin,mg/ day 14.6 0.0 - 16.6 mg/L 05/13/2024 9:27 PM [employer]N [facility] Creatinine, Urine 231 mg/dL 05/13/2024 8:42 PM [employer]N [facility] Comment: No established reference range. Microalb/Creat Ratio 6 0 - 16 mg/g 05/13/2024 9:27 PM [employer] [facility] Urine 05/13/2024 4:10 PM [employer]N 05/13/2024 7:48 PM [employer] Renan Sagastume APRN, CNP LAB URINE ORDERABLES F inal Result Performing Organization Address [facility] Co de Phone Number [facility] [address] [place], [place] [phone] * Estimated Glomerular Filtration Rate (eGFR) (05/13/2024 4:03 PM [employer]) Estimated Glomerular Filtration Rate (eGFR) >60 05/13/2024 8:16 PM [employer]N [facility] Comment: GFR calculated from serum creatinine value Chronic Kidney Disease less than 60 mL/min/1.73 m2 Kidney Failure less than 15 mL/min/1.73 m2 Note: effective 04/05/2022: 2020 CKD-EPI Equation used 05/13/2024 4:03 PM [employer] 05/13/2024 4:03 PM [employer] Renan Sagastume APRN, CNP LAB BLOOD ORDERABLES F inal Result Performing Organization Address City/[facility]/ZIP Co de Phone Number [facility] [address] [place] [phone] * Hemoglobin A1c (05/13/2024 4:03 PM [employer]) Hemoglobin A1C 5.5 4.0 - 5.6 % A1C 05/14/2024 4:44 AM [employer]N [facility] Comment: Reference Range 4.0-5.6% is for non- adults >=18 yrs <5.6% Non-Diabetic 5.7-6.4% Increased risk of Diabetes >=6.5% Indicative of Diabetes <7.0% ADA goal for glycemic control Methodology may not detect all hemoglobin variants which can affect A1c results. Method certified by National Glycohemoglobin Standardization Program. Blood (Blood, Venous) 05/13/2024 4:03 PM [employer]N 05/13/2024 7:48 PM [facility] us Renan Sagastume APRN, CNP LAB BLOOD ORDERABLES F inal Result [facility] [address] [place] [address] * (ABNORMAL) Lipid panel (fasting) (05/13/2024 4:03 PM [employer]) Cholesterol 152 0 - 199 mg/dL 05/13/2024 8:16 PM [facility] Comment: Recommended by National Cholesterol Education Program (ATP III) -------- Cholesterol Ranges -------- <200 Desirable 200-239 Borderline high >=240 High Triglycerides 129 0 - 149 mg/dL 05/13/2024 8:16 PM [employer]N [facility] Comment: -------- TRIG Ranges -------- <150 Normal 150-199 Borderline high 200-499 High >=500 Very high HDL 34(L) 40 - 250 mg/dL 05/13/2024 8:16 PM [facility] Comment: -------- HDL Ranges -------- <40 Low 40-59 Normal >=60 Optimal LDL Calculated 92 0 - 99 mg/dL 05/13/2024 8:16 PM [facility] Comment: -------- LDL Ranges -------- <100 Optimal 100-129 Near optimal/above optimal 130-159 Borderline high 160-189 High >=190 Very high Blood (Blood, Venous) 05/13/2024 4:03 PM [employer] 05/13/2024 7:48 PM [employer] Renan Sagastume CST, VENDING MACHINE REFILLER LAB BLOOD ORDERABLES F inal Result [facility] [address] [place] [address] * Comprehensive metabolic panel (05/13/2024 4:03 PM [employer]) Total Protein 7.3 6.3 - 8.2 g/dL 05/13/2024 8:16 PM [facility] Albumin, Serum 4.6 3.5 - 5.0 g/dL 05/13/2024 8:16 PM [facility] Total Bilirubin <0.7 0.1 - 1.0 mg/dL 05/13/2024 8:16 PM [facility] AST 23 8 - 48 U/L 05/13/2024 8:16 PM [facility] Alkaline Phosphatase 51 38 - 128 U/L 05/13/2024 8:16 PM [facility] ALT (SGPT) 35 0 - 49 U/L 05/13/2024 8:16 PM [facility] Sodium 140 135 - 145 mEq/L 05/13/2024 8:16 PM [facility] Potassium 3.9 3.5 - 5.1 mEq/L 05/13/2024 8:16 PM [facility] Chloride 103 98 - 107 mEq/L 05/13/2024 8:16 PM [facility] CO2 29 22 - 31 mmol/L 05/13/2024 8:16 PM [facility] BUN 13 5 - 25 mg/dL 05/13/2024 8:16 PM [facility] Creatinine 0.76 0.60 - 1.40 mg/dL 05/13/2024 8:16 PM [facility] Glucose 97 70 - 100 mg/dL 05/13/2024 8:16 PM [employer] [facility] Calcium, Total,S 9.5 8.4 - 10.2 mg/dL 05/13/2024 8:16 PM [employer] [facility] Anion Gap 8 4 - 13 05/13/2024 8:16 PM [employer] [facility] Comment: The anion gap is calculated with the following formula: AGAP = Na ? (Cl + CO2). Fasting? No 05/13/2024 4:03 PM [employer] [facility] Blood (Blood, Venous) 05/13/2024 4:03 PM [employer] 05/13/2024 7:48 PM [employer] us Renan Sagastume APRN, CNP LAB BLOOD ORDERABLES F inal Result [facility] [address] [place] [address] * (ABNORMAL) Wound culture (05/01/2024 3:30 PM [employer]) Wound Culture Many Coagulase-negativ e Staphylococcus species Few diphtheroids (A) 05/03/2024 9:54 AM [employer]N [facility] Gram Stain Few gram positive cocci, pairs. Few WBC'S. 05/02/2024 2:23 PM [employer]N [facility] Wound Culture Staphylococcus aureus Many Use oxacillin interpretation to predict results for anti-staphylococc al beta-lactam antibiotics (except ceftaroline). (A) 05/04/2024 6:14 AM [employer]N [facility] Wound (Abdomen) 05/01/2024 3 :30 PM [employer] 05/01/2024 7:30 PM [employer] Comment:Wound Culture Narrative Organism Antibiotic Method Susceptibility Staphylococcus aureus Clindamycin <=0.5 mcg/mL: Susceptible Staphylococcus aureus Erythromycin >4 mcg/mL: Resistant Staphylococcus aureus Oxacillin <=0.25 mcg/mL: Susceptible Staphylococcus aureus Tetracycline <=4 mcg/mL: Susceptible Staphylococcus aureus Trimeth/Sulfa <=0.5/9.5 mcg/mL: Susceptible us Kamilah S. Boysen DNP, CST, VENDING MACHINE REFILLER LAB M ICROBIOLOGY - GENERAL ORDERABLES Final Result [facility] [address] [place] [phone] * POCT Precision glucose (04/10/2024 5:46 PM MARKETING [employer] INTERN) [facility] Glucose Blood, POC 97 70 - 100 mg/dL 04/10/2024 5:46 PM [employer]N [facility] Comment: Meter ID: [id number] Capillary whole blood specimens should not be used in patients receiving intensive medical intervention/therapy because of the potential for pre-analytical collection error and specifically in patients with decreased peripheral blood flow, as it may not truly reflect the patient?s true physiological state. Examples include, but are not limited to, severe hypotension, shock, hyperosmolar-hyperglycemia (with or without ketosis), and severe dehydration. 04/10/2024 5:46 PM [employer]N 04/10/2024 5:46 PM [employer] Leodan Campbell PA-C LAB POINT OF CARE TE ST DOCKED DEVICE UNSOLICITED RESULTS Final Result Performing Organization Address City/[facility]/ZIP Co de Phone Number [facility] [address] [place] [phone] from Last 3 Months Additional Health Concerns Infection Onset Date Last Indicated MSSA 05/01/2024 05/01/2024 Insurance [facility] [employer] [facility] Member Subscriber Plan / Payer (Ef fective 2020-Present) Name:Kam Rosas Relation to Subscriber:Employee Name:SHERLEY EVANGELISTA (Work) Address: [address] [place] [id number] Payer ID:[id number] Group ID:Not on file Type:Not on file Address: [facility] [address] [place] [address] Advance Directives For more information, please contact: [phone] * Full Code (Latest Code Status on File) Date Activated Date Inactivated Comments 08/12/2020 11:47 AM 08/12/2020 3:48 PM Care Teams Quality Analyst Relationship Specialty Start Date End Date Renan Sagastume, CST, VENDING MACHINE REFILLER [address] [place] [phone] PCP - General Family Medicine 08/03/20
[2024-06-13 01:29] VITALS: BP 159/78; PULSE 89; RESP 20; TEMP 36.8; O2SAT 99
== END 2024-06-13 01:41 | disposition home or self-care (01) ==
PROVIDERS: Emergency Provider Internal Medicine
DX: K02.9 Dental caries, unspecified (principal)
CPT/HCPCS: 96372; 99283; J1885